=== PATIENT | male | born 1970 | race Caucasian/White ===

== ENCOUNTER 2021-11-21 06:00 | Day surgery (SDC) | payer BC ==
[~2021-11-21] VITALS: Ht 190.5 cm; Wt 108.6 kg
[~2021-11-21 06:00] MED LIST: CYMBALTA60 MG PO; FLOMAX0.4 MG; PRAVASTATIN SOD20 MG PO; TRIAMCINOLONE A15 G1 TOP
--- NOTE | 2021-11-21 07:52 | NUR ---
11/21/21 0752 Lisa Dennis 0748- PT ARRIVES TO PACU NONAROUSABLE TO NOXIOUS STIMULI WITH AN OPA IN PLACE. RESP EVEN AND UNLABORED. OXYGEN SAT HIGH 90'S TO 100% ON 8L VIA MASK. 0749- PT PASSING FLATUS. 0752- OXYGEN TITRATED DOWN TO 6L VIA MASK.
--- NOTE | 2021-11-21 08:23 | NUR ---
PT JUST RETURNING FROM [place]. AUTOMOTIVE REFINISH TECHNICIAN ROSALIO IN TO HELP GET PT UNTANGLED FROM IV LINE AND BLANKET. HERE FOR FIRST SCOPE, STAFF NEED TO TAKE PT. GAVE BLESSING WILL FOLLOW NEEDED
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
== END 2021-11-21 08:42 | disposition home or self-care (01) ==
LOC: OPS 06:00 → DS 06:00 → OPS 07:30 → DS 11-28 07:30
PROVIDERS: ATTEND Colon & Rectal Surgery
PROC: 0DJD8ZZ Inspection of Lower Intestinal Tract, Via Natural or Artificial Opening Endoscopic (ICD-10-PCS; principal; 2021-11-21 06:45)
DX: Z12.11 Encounter for screening for malignant neoplasm of colon (principal); Z88.1 Allergy status to other antibiotic agents; E78.00 Pure hypercholesterolemia, unspecified; K64.8 Other hemorrhoids
CPT/HCPCS: J2704; J7121